=== PATIENT | male | born 1970 | race Two or more races ===

== ENCOUNTER 2021-02-16 08:52 | Emergency (ER) | payer SELFPAY ==
[~2021-02-16] VITALS: Ht 177.8 cm; Wt 100.0 kg
[2021-02-16] MEDS ORDERED: SITA1TAB11 PO (09:07)
--- NOTE | 2021-02-16 09:24 | PHYS DOC ---
Past Medical History Past Medical History: Diabetes-Type II Past Surgical History: No Surgical History Smoking Status: Never Smoker Alcohol Use: None General Adult EDM: Chief Complaint: ABDOMINAL PAIN HPI: HPI: Patient is a 50 year old male who presented to ER for evaluation of right lower abdominal pain started this morning. Patient denies any urinary symptom, patient said he feels like he need to go to the bathroom and after he was done he continued to feel the need to go to the bathroom again. Patient denies any fever, no nausea vomiting. Patient denies any cough or fever, no chest pain, no COVID-19 exposure. Patient denies any history of kidney stone. Patient has history of diabetic. Review of Systems: Review of Systems: Constitutional: Denies fever or chills. [] Eyes: Denies change in visual acuity. [] HENT: Denies nasal congestion or sore throat. [] Respiratory: Denies cough or shortness of breath. [] Cardiovascular: Denies chest pain or edema. [] GI: Positive for right lower abdominal pain associate with nausea, no vomiting, no diarrhea. : Denies dysuria. [] Musculoskeletal: Denies back pain or joint pain. [] Integument: Denies rash. [] Neurologic: Denies headache, focal weakness or sensory changes. [] Endocrine: Denies polyuria or polydipsia. [] Lymphatic: Denies swollen glands. [] Psychiatric: Denies depression or anxiety. [] Heart Score: C/O Chest Pain: N/A Risk Factors: Risk Factors: DM, Current or recent (<one month) smoker, HTN, HLP, family history of CAD, obesity. Risk Scores: Score 0 - 3: 2.5% MACE over next 6 weeks - Discharge Home Score 4 - 6: 20.3% MACE over next 6 weeks - Admit for Clinical Observation Score 7 - 10: 72.7% MACE over next 6 weeks - Early Invasive Strategies Allergies: Allergies: Allergies Coded Allergies Type Severity Reaction Last Updated Verified No Known Drug Allergies 02/16/21 No Physical Exam: PE: Constitutional: Well developed, well nourished, no acute distress, non-toxic appearance. [] HENT: Normocephalic, atraumatic, bilateral external ears normal, oropharynx moist, no oral exudates, nose normal. [] Eyes: PERRLA, EOMI, conjunctiva normal, no discharge. [] Neck: Normal range of motion, no tenderness, supple, no stridor. [] Cardiovascular:Heart rate regular rhythm, no murmur [] Lungs & Thorax: Bilateral breath sounds clear to auscultation [] Abdomen: Bowel sounds normal, soft, there is tenderness to palpation in right lower abdominal area, suprapubic area, no rebound tenderness BUT WITH GUARDING Skin: Warm, dry, no erythema, no rash. [] Back: No tenderness, no CVA tenderness. [] Extremities: No tenderness, no cyanosis, no clubbing, ROM intact, no edema. [] Neurologic: Alert and oriented X 3, normal motor function, normal sensory function, no focal deficits noted. [] Psychologic: Affect normal, judgement normal, mood normal. [] Current Patient Data: Labs: Laboratory Tests Test 02/16/21 09:00 02/16/21 09:20 Urine Collection Type Unknown Urine Color Yellow Urine Clarity Clear Urine pH 6.0 Urine Specific [place] >=1.030 Urine Protein 30 mg/dL Urine Glucose (UA) >=1000 mg/dL Urine Ketones (Stick) Trace mg/dL Urine Blood Negative Urine Nitrite Negative Urine Bilirubin Negative Urine Urobilinogen Dipstick 0.2 mg/dL Urine Leukocyte Esterase Negative Urine RBC 0 /HPF Urine WBC 0 /HPF Urine Squamous Epithelial Cells Few /LPF Urine Bacteria 0 /HPF White Blood Count 13.9 x10^3/uL Red Blood Count 4.82 x10^6/uL Hemoglobin 13.1 g/dL Hematocrit 39.3 % Mean Corpuscular Volume 82 fL Mean Corpuscular Hemoglobin 27 pg Mean Corpuscular Hemoglobin Concent 33 g/dL Red Cell Distribution Width 14.9 % Platelet Count 310 x10^3/uL Neutrophils (%) (Auto) 84 % Lymphocytes (%) (Auto) 11 % Monocytes (%) (Auto) 4 % Eosinophils (%) (Auto) 0 % Basophils (%) (Auto) 0 % Neutrophils # (Auto) 11.7 x10^3/uL Lymphocytes # (Auto) 1.6 x10^3/uL Monocytes # (Auto) 0.6 x10^3/uL Eosinophils # (Auto) 0.0 x10^3/uL Basophils # (Auto) 0.0 x10^3/uL Sodium Level 142 mmol/L Potassium Level 3.6 mmol/L Chloride Level 102 mmol/L Carbon Dioxide Level 26 mmol/L Anion Gap 14 Blood Urea Nitrogen 15 mg/dL Creatinine 1.2 mg/dL Estimated GFR (Cockcroft-Gault) 64.6 BUN/Creatinine Ratio 13 Glucose Level 251 mg/dL Calcium Level 8.5 mg/dL Total Bilirubin 0.3 mg/dL Aspartate Amino Transf (AST/SGOT) 17 U/L Alanine Aminotransferase (ALT/SGPT) 41 U/L Alkaline Phosphatase 90 U/L Total Protein 7.7 g/dL Albumin 3.6 g/dL Albumin/Globulin Ratio 0.9 Lipase 102 U/L Current Medications Medications (Trade) Dose Ordered Sig/Kelsey Route PRN Reason Start Time Stop Time Status Last Admin Dose Admin Sodium Chloride 1,000 ml @ 1,000 mls/hr 1X ONCE IV 02/16/21 09:15 02/16/21 10:14 DC 02/16/21 09:27 Morphine Sulfate (Morphine Sulfate) 4 mg 1X ONCE IV 02/16/21 09:15 02/16/21 09:16 DC 02/16/21 09:29 Ondansetron HCl (Zofran) 4 mg 1X ONCE IVP 02/16/21 09:15 02/16/21 09:16 DC 02/16/21 09:28 Iohexol (Omnipaque 300 Mg/ml) 75 ml 1X ONCE IV 02/16/21 10:00 02/16/21 10:01 DC 02/16/21 10:05 Info (CONTRAST GIVEN -- Rx MONITORING) 1 each PRN DAILY PRN MC SEE COMMENTS 02/16/21 10:00 02/18/21 09:59 Ketorolac Tromethamine (Toradol 30mg Vial) 30 mg 1X ONCE IVP 02/16/21 10:00 02/16/21 10:01 DC 02/16/21 09:59 Ketorolac Tromethamine (Toradol 30mg Vial) 30 mg STK-MED ONCE .ROUTE 02/16/21 09:56 02/16/21 09:57 DC Vital Signs: Vital Signs Date Time Temp Pulse Resp B/P (MAP) Pulse Ox O2 Delivery O2 Flow Rate FiO2 02/16/21 09:00 98.1 86 16 146/74 (98) 98 Room Air 98.1 EKG: EKG: [] Radiology/Procedures: Radiology/Procedures: [][facility] [address] [place] [address] IMAGING REPORT Signed PATIENT: SILVER GARCIA ACCOUNT: [id number] : 1970 LOCATION: ER AGE: 50 SEX: M EXAM STATUS: REG ER ORD. PHYSICIAN: VIRGINIA EAGLE DO REASON: RLQ abdominal pain PROCEDURE: CT ABD PELV W/ IV CONTRST ONLY Exam: CT abdomen/pelvis with intravenous contrast Indication: Right lower quadrant abdominal Comparison: None Technique: Helical CT imaging performed of the abdomen and pelvis after the intravenous administration of 75 mL Omnipaque 300 contrast. Sagittal and coronal reformats were obtained. One or more of the following individualized dose reduction techniques were utilized for this examination: 1. Automated exposure control 2. Adjustment of the mA and/or kV according to patient size 3. Use of iterative reconstruction technique. Findings: Lower chest: There are few ground glass opacities in the right lower lobe. The heart is normal size. Liver: The liver measures 20 cm in length. No focal lesion. Gallbladder/Biliary Tree: Normal. Pancreas: Normal. Spleen: Normal. Adrenal Glands: Normal. Kidneys/Ureters/Bladder: There is a 4 mm calculus at the right ureterovesicular junction and mild right hydronephrosis and hydroureter. There is delayed nep hrogram on the right. The left kidney and ureter are normal. The bladder is normal. Reproductive Organs: Normal. Stomach, small bowel, and colon: Normal. Appendix is normal. Vasculature: No aortic aneurysm. Lymph Nodes: There small jean hepatis and periaortic lymph nodes, likely reactive. Peritoneum and retroperitoneum: No free fluid or free air. Bones: No acute osseous abnormality. Mild degenerative disc at L5-S1 with small disc bulge and vacuum disc phenomenon. Impression: 1. Mild right hydroureteronephrosis due to a 4 mm calculus at the right ureterovesicular junction. 2. Mild hepatomegaly. 3. A few ground glass opacities in the right lower lobe, nonspecific but likely infectious or inflammatory. Electronically signed by: Zandra Lombardo MD (02/16/2021 10:27 AM) [id number] DICTATED and SIGNED BY: ZANDRA LOMBARDO MD DATE: 02/16/21 [id number] 0 Course & Med Decision Making: Course & Med Decision Making Pertinent Labs and Imaging studies reviewed. (See chart for details) Patient is a 50-year-old male who presented to ER due to right-sided abdominal pain, CT scan his abdomen pelvic show 4 mm renal stone at the right UVJ junction, mild hydronephrosis, he had normal kidney function, no evident infection. Patient was given medication in the ER, he felt much better. Patient denies any cough or fever, no trouble breathing, no clinical evidence of pneumonia Dragon Disclaimer: Dragon Disclaimer: This electronic medical record was generated, in whole or in part, using a voice recognition dictation system. Departure Departure Impression: Primary Impression: Kidney stone on right side Disposition: HOME / SELF CARE / HOMELESS Condition: IMPROVED Referrals: NO PCP (PCP) PLEASE CALL [facility] UROLOGY DEPART[facility] FOR FOLLOW UP THIS WEEK. The phone number is [phone] Patient Instructions: Kidney Stones Additional Instructions: Thank you for visiting our Emergency Department. We appreciate you trusting us with your care. If any additional problems come up don't hesitate to return to visit us. Please follow up with your primary care provider so they can plan additional care if needed and know about the problem that you had. If symptoms worsen come back to the Emergency Department. Any concerning symptoms that start such as chest pain, shortness of air, weakness or numbness on one side of the body, running high fevers or any other concerning symptoms return to the ER. Scripts Tamsulosin Hcl (FLOMAX) 0.4 Mg Cap.er.24h 1 CAP PO DAILY for 10 Days, #10 CAP 11 Refills Prov: VIRGINIA EAGLE DO 02/16/21 Naproxen Sodium (ANAPROX DS) 550 Mg Tablet 1 TAB PO BID PRN for PAIN for 15 Days, #30 TAB 0 Refills Prov: VIRGINIA EAGLE DO 02/16/21 Hydrocodone/Acetaminophen (Hydrocodone-Acetamin 5-325 mg) 1 Each Tablet 1 EACH PO Q6HRS PRN for PAIN, #20 TAB Prov: VIRGINIA EAGLE DO 02/16/21 VIRGINIA EAGLE DO Feb 16, 2021 09:24
[2021-02-16] MEDS: IV NORMAL SALINE 1000ML BAG 1,000 ML IV ONE (09:27)
[2021-02-16] MEDS: ONDANSETRON PF 4 MG/2 ML VIAL. IVP ONE (09:28)
[2021-02-16] MEDS: MORPHINE SULFATE 4 MG/ML VIAL. IV ONE (09:29)
[2021-02-16 09:34] LABS: BASO % 0 % (0-3); EOS % 0 % (0-3); HEMATOCRIT 39.3 % (39.0-53.0); HEMOGLOBIN 13.1 g/dL (13.0-17.5); LYMPH # 1.6 x10^3/uL (1.0-4.8); LYMPH % 11 % (24-48); MEAN CORPUSCULAR HEMOGLOBIN 27 pg (25-35); MEAN CORPUSCULAR HGB CONC 33 g/dL (31-37); MEAN CORPUSCULAR VOLUME 82 fL (79-100); MONO # 0.6 x10^3/uL (0.0-1.1); MONO % 4 % (0-9); NEUT # 11.7 x10^3/uL (1.8-7.7); NEUT % 84 % (31-73); PLATELET COUNT 310 x10^3/uL (140-400); RED BLOOD COUNT 4.82 x10^6/uL (4.30-5.70); RED CELL DISTRIBUTION WIDTH 14.9 % (11.5-14.5); WHITE BLOOD COUNT 13.9 x10^3/uL (4.0-11.0)
[2021-02-16 09:35] LABS: BILIRUBIN,URINE NEGATIVE (NEG); CLARITY,URINE CLEAR; COLOR,URINE YELLOW; NITRITE,URINE NEGATIVE (NEG); PROTEIN,URINE 30 mg/dL (NEG-TRACE); UROBILINOGEN,URINE 0.2 mg/dL (0.2 mg/dL)
[2021-02-16 09:42] LABS: CALCIUM 8.5 mg/dL (8.5-10.1); CREATININE 1.2 mg/dL (0.7-1.3); GFR 64.6; POTASSIUM 3.6 mmol/L (3.5-5.1)
[2021-02-16 09:47] LABS: ALBUMIN 3.6 g/dL (3.4-5.0); ALBUMIN/GLOBULIN RATIO 0.9 (1.0-1.7); TOTAL BILIRUBIN 0.3 mg/dL (0.2-1.0); TOTAL PROTEIN 7.7 g/dL (6.4-8.2)
[2021-02-16] MEDS ORDERED: KETOROLAC 30 MG/ML VIAL. ONE (09:56)
[2021-02-16 09:57] LABS: BACTERIA,URINE 0 /HPF (0-FEW); RBC,URINE 0 /HPF (0-2); WBC,URINE 0 /HPF (0-4)
[2021-02-16] MEDS: KETOROLAC 30 MG/ML VIAL. IVP ONE (09:59)
[2021-02-16] MEDS ORDERED: CONTRAST GIVEN. MC PRN (10:00)
[2021-02-16] MEDS: IOHEXOL 300 MG/ML 100ML VIAL. IV ONE (10:05)
--- NOTE | 2021-02-16 10:29 | RAD ---
Exam: CT abdomen/pelvis with intravenous contrast Indication: Right lower quadrant abdominal Comparison: None Technique: Helical CT imaging performed of the abdomen and pelvis after the intravenous administratio n of 75 mL Omnipaque 300 contrast. Sagittal and coronal reformats were obtained. One or more of the following individualized dose reduction techniques were utilized for this examinat ion: 1. Automated exposure control 2. Adjustment of the mA and/or kV according to patient size 3. Use of iterative reconstruction technique. Findings: Lower chest: There are few ground glass opacities in the right lower lobe. The heart is normal size. Liver: The liver measures 20 cm in length. No focal lesion. Gallbladder/Biliary Tree: Normal. Pancreas: Normal. Spleen: Normal. Adrenal Glands: Normal. Kidneys/Ureters/Bladder: There is a 4 mm calculus at the right ureterovesicular junction and mild rig ht hydronephrosis and hydroureter. There is delayed nephrogram on the right. The left kidney and uret er are normal. The bladder is normal. Reproductive Organs: Normal. Stomach, small bowel, and colon: Normal. Appendix is normal. Vasculature: No aortic aneurysm. Lymph Nodes: There small jean hepatis and periaortic lymph nodes, likely reactive. Peritoneum and retroperitoneum: No free fluid or free air. Bones: No acute osseous abnormality. Mild degenerative disc at L5-S1 with small disc bulge and vacuum disc phenomenon. Impression: 1. Mild right hydroureteronephrosis due to a 4 mm calculus at the right ureterovesicular junction. 2. Mild hepatomegaly. 3. A few ground glass opacities in the right lower lobe, nonspecific but likely infectious or inflam matory. Electronically signed by: Zandra Lombardo MD (02/16/2021 10:27 AM) [id number]
[2021-02-16] MEDS ORDERED: TAMS0.4C97 PO (11:37)
[2021-02-16] MEDS ORDERED: NAPR-682 PO (11:37)
[2021-02-16] MEDS ORDERED: HYDR-2759 PO (11:37)
[2021-02-16 11:49] VITALS: BP 122/70
== END 2021-02-16 11:44 | disposition home or self-care (01) ==
LOC: ER 08:52
DX: N20.2 Calculus of kidney with calculus of ureter (principal); R16.0 Hepatomegaly, not elsewhere classified; E11.9 Type 2 diabetes mellitus without complications; M51.37 Other intervertebral disc degeneration, lumbosacral region
CPT/HCPCS: 36415; 74177; 80053; 81001; 83690; 85025; 96361; 96374; 96375; 99285; J1885; J2270; J2405; J7030; Q9967